=== PATIENT | male | born 1935 | race Caucasian/White ===

== ENCOUNTER 2019-04-23 13:13 | Emergency (ER) | payer MEDICARE, OTHER ==
[~2019-04-23] VITALS: Ht 175.3 cm; Wt 79.5 kg
[~2019-04-23 13:13] MED LIST: ARICEPT10 MG PO; ASPI325T6 PO; CALCIUM CITRAT200 MG PO; CEPHALEXIN500 M1 PO; DIOVAN HCT 25 M1 TA1 PO; FISH OIL1000 MG PO; FLONASE0.05 MG/AC NS; GABAPENTIN100 MG PO; LEVOTHYROXIN0.088 MG PO; LEVOXYL0.088 MG PO; LOPRESSOR 225 MG/TAB PO; NAMENDA XR 28MG PO; NEURONTIN100 MG/CAP PO; OCUVITE1 TA1 PO; OCUVITE1 TA2 PO; PREDFORTE5ML OP; PRILOSEC 20MG20 MG PO; ZOLOFT 50MG50 MG PO
[2019-04-23 13:16] VITALS: TEMP 98.2
[2019-04-23 13:54] LABS: ALANINE AMINOTRANSFERASE < 6 U/L (21-72); ALBUMIN 4.2 gm/dL (3.5-5.0); ALKALINE PHOSPHATASE 116 U/L (50-136); ANION GAP 11 mmol/L (7-16); AST,SGOT 25 U/L (15-37); BILIRUBIN,TOTAL 1.3 mg/dL (0.0-1.0); BLOOD UREA NITROGEN 20 mg/dL (9-20); C-REACTIVE PROTEIN 2.2 mg/dL (0.0-0.9); CALCIUM 9.6 mg/dL (8.4-10.2); CARBON DIOXIDE 25 mmol/L (22-30); CHLORIDE 106 mmol/L (98-107); CREATININE, serum 0.92 (0.66-1.25); GLUCOSE 119 mg/dL (74-106); POTASSIUM 4.1 mmol/L (3.4-5.0); SODIUM 141 mmol/L (137-145); TOTAL PROTEIN 7.5 gm/dL (6.4-8.2)
[2019-04-23 14:03] LABS: BASO % 0.4 % (0.0-2.0); EOS # 0.2 (0.0-0.7); EOS % 2.1 % (0-4.0); GRAN # 5.3 (1.4-6.5); GRAN % 65.5 % (42.2-75.2); HEMATOCRIT 42.1 % (42.0-52.0); HEMOGLOBIN 14.2 g/dl (13.5-18.0); LYMPH # 1.9 (1.2-3.4); LYMPH % 23.2 % (20.0-51.0); MEAN CELL VOLUME 96 fl (80.0-100.0); MEAN CORPUSCULAR HEMOGLOBIN 32 pg (27.0-31.0); MEAN CORPUSCULAR HGB CONC 34 g/dl (33.0-37.0); MEAN PLATELET VOLUME 10.3 fl (7.4-10.4); MONO # 0.7 (0.1-0.6); MONO % 8.3 % (1.7-9.3); PLATELET COUNT 201 K/mm3 (130-400); RED BLOOD COUNT 4.39 M/mm3 (4.20-5.60); REDCELL DISTRIBUTION WIDTH-CV 12.7 % (11.5-14.5)
[2019-04-23 14:04] LABS: PROTHROMBIN TIME 11.9 SECONDS (9.7-12.8)
[2019-04-23 14:06] LABS: PARTIAL THROMBOPLASTIN TIME 29.1 SECONDS (26.0-37.0)
[2019-04-23 14:07] LABS: TROPONIN-I < 0.012 ng/mL (0.000-0.035)
[2019-04-23] MEDS ORDERED: ZIAC 10/6.25M1 UDTAB PO (14:24)
[2019-04-23] MEDS ORDERED: CALCIUM CARBON650 M2 (14:25)
[2019-04-23 17:37] VITALS: BP 118/91; PULSE 61
== END 2019-04-23 17:37 | disposition home or self-care (01) ==
LOC: COL.ER 13:13
PROVIDERS: Family Medicine
DX: R07.89 Other chest pain (principal); I10 Essential (primary) hypertension; K21.9 Gastro-esophageal reflux disease without esophagitis; Z95.0 Presence of cardiac pacemaker; Z79.82 Long term (current) use of aspirin

== ENCOUNTER 2020-02-02 07:45 | Inpatient (IN) | payer MEDICARE, OTHER ==
[~2020-02-02] VITALS: Ht 22.9 cm; Wt 80.9 kg
[~2020-02-02 07:45] MED LIST changes: +CALCIUM CARBON650 M2 PO; +ZIAC 10/6.25M1 UDTAB PO
[2020-02-02 08:36] LABS: BASO % 0.1 % (0.0-2.0); EOS # 0.1 (0.0-0.7); EOS % 0.4 % (0-4.0); GRAN # 11.9 (1.4-6.5); GRAN % 86.4 % (42.2-75.2); HEMATOCRIT 40.9 % (42.0-52.0); HEMOGLOBIN 13.4 g/dl (13.5-18.0); LYMPH # 1.2 (1.2-3.4); LYMPH % 8.4 % (20.0-51.0); MEAN CELL VOLUME 96 fl (80.0-100.0); MEAN CORPUSCULAR HEMOGLOBIN 31 pg (27.0-31.0); MEAN CORPUSCULAR HGB CONC 33 g/dl (33.0-37.0); MONO # 0.5 (0.1-0.6); MONO % 3.8 % (1.7-9.3); PLATELET COUNT 196 K/mm3 (130-400); RED BLOOD COUNT 4.28 M/mm3 (4.20-5.60)
[2020-02-02 08:38] LABS: INR 1.1 (0.8-3.0); PROTHROMBIN TIME 11.9 SECONDS (9.7-12.8)
[2020-02-02 08:43] LABS: ALANINE AMINOTRANSFERASE 17 U/L (4-49); ALBUMIN 4.2 gm/dL (3.5-5.0); ALKALINE PHOSPHATASE 137 U/L (50-136); ANION GAP 8 mmol/L (7-16); AST,SGOT 29 U/L (15-37); BILIRUBIN,TOTAL 1.1 mg/dL (0.0-1.0); BLOOD UREA NITROGEN 22 mg/dL (9-20); CALCIUM 9.6 mg/dL (8.4-10.2); CARBON DIOXIDE 24 mmol/L (22-30); CHLORIDE 104 mmol/L (98-107); CREATININE, serum 0.93 (0.66-1.25); GLUCOSE 116 mg/dL (74-106); SODIUM 136 mmol/L (137-145); TOTAL PROTEIN 7.4 gm/dL (6.4-8.2)
[2020-02-02 08:55] LABS: TROPONIN-I < 0.012 ng/mL (0.000-0.035)
--- NOTE | 2020-02-02 12:38 | NUR ---
Patient arrived to floor from ED via bed. Patient was transferred to room bed via slide board with x3 assist. Patient is alert, appears to be confused/does not comprehend when questions are asked to him. Patient also appears to be comfortable, in no obvious pain or distress. IVF initiated per order, EVIE hose applied to uninjured leg, and bird catheter inserted per order via sterile technique. Patient tolerated procedure well. Fall signage placed, bed alarm on. Admission B completed while on the phone with patient's , who is his DPOA.
[2020-02-02 12:51] VITALS: BP 158/76; PULSE 69; TEMP 99.9
[2020-02-02 13:11] LABS: COLLECTION METHOD CLEAN CATCH
[2020-02-02 13:41] LABS: MUCOUS Present /lpf; PH 5 (5-8); SQUAMOUS EPITHELIAL 0-2 /hpf; URINE APPEARANCE Clear; URINE BACTERIA None Seen /hpf; URINE BILIRUBIN Negative (NEGATIVE); URINE BLOOD Negative (NEGATIVE); URINE COLOR Yellow; URINE GLUCOSE Negative (NEGATIVE); URINE KETONE Negative (NEGATIVE); URINE LEUKOCYTE ESTERASE Negative (NEGATIVE); URINE NITRATE Negative (NEGATIVE); URINE PROTEIN(semi-quant) Negative (NEGATIVE); URINE RBC 0-2 /hpf; URINE UROBILINOGEN Negative (NEGATIVE)
--- NOTE | 2020-02-02 15:16 | NUR ---
Due to the patient's history of dementia, SW contacted the patient's , Maria Luz to complete initial intake. The patient lives in [place] with Maria Luz. The patient does not use a cane or walker but they do have those available in the home. The patient's PCP is Dr. Hirsch and patient receives medications via mail, delivery or order picker/assembler from [facility]. The patient does not have advanced directives in the EMR. Maria Luz states they are completed and designate herself and their daughter Renetta. Renetta lives in [place] and will be visiting beginning 02/02 to support the family. They have another daughter named Rosi Lyle who lives close by. Due to the patient's fracture he will likely need placment. TELMA discussed Medicare.gov's list of post acute rehab facilities in the [place] area. The first choice is [facility]. Maria Luz was hesistant to give a second choice because she want to patient to be closer to home. However, she did end up choosing [facility] in [place] as second choice. TELMA faxed referrals. Will continue to monitor.
--- NOTE | 2020-02-02 15:39 | NUR ---
Patient has become persistently confused over the last hour. Patient has tried to get out of bed unassisted several times, continues to deny needs, PRN pain medication administered per order. Staff member at bedside currently, patient does not respond to re-orientation. Bed alarm on.
[2020-02-02 16:00] VITALS: BP 131/66; PULSE 73; TEMP 99.8
[2020-02-02 20:10] VITALS: BP 145/87; PULSE 86; TEMP 97.9
--- NOTE | 2020-02-02 21:00 | NUR ---
Received report from MADI Turner. Pt is currently lying in bed looking out of his window. Pt bed is in lowest position and call light is on
--- NOTE | 2020-02-02 21:08 | NUR ---
Pt is unable to take direction to perform I.S.
--- NOTE | 2020-02-02 21:10 | NUR ---
Spoke with VELMA Trinidad she informed me that Dr. Chilel would see pt in the am before surgery. She stated that surgery time would be pushed back to 0900. She stated she also spoke to pt and explain the surgery to her. She stated pt will go forward with surgery once he is cleared. Pt is also NPO after midnight. Pt is currently lying in bed awake. Pt has his call light within reach and his bed is in lowest position. His sam hose is on the unaffected leg, he has been refusing the SCD pumps on his legs. Pt currently has fluids running at this time.Pt lungs sounds were clear and heart sounds were normal S1 and S2 sounds pt bowel sounds were hypoactive in all quads. Pt has been very quite just looking around and lying in bed. His bed alarm is also on at this time.
[2020-02-03] VITALS (375 sets, daily range): BP systolic 89–125; BP diastolic 58–84; PULSE 65–82; TEMP 98.1–99.2; O2SAT 70–100
--- NOTE | 2020-02-03 01:36 | NUR ---
Pt has not slept during the night. He is lying in bed very quite just looking around. Pt was given a warm blanket and pt just smiled. He has not been seeking to get out of bed. Pt has his call light within reach and his bed is in lowest position and alarm is on at this time.
--- NOTE | 2020-02-03 07:27 | NUR ---
Reported off to MADI Urias. Pt is currently lying in bed. Pt did not sleep well during the night. He was very quite lying in bed but did not sleep. Pt did pull at his bird quite a bit. Pt stat lock for his bird was replace a couple of time. Pt IV was stablized by wraping it. Pt has his call light within reach. He also takes his oxygen off. Bed is in lowest positon and call light is within reach.
--- NOTE | 2020-02-03 07:34 | NUR ---
Lying in bed with eyes open. Patient is alert but is confused. Denies pain at this time. Conley to dependent drainage draining clear yellow urine.
--- NOTE | 2020-02-03 07:41 | NUR ---
Dr. Chilel calls and explains she will be in to see the patient around 0840 for cardiology clearance.
--- NOTE | 2020-02-03 08:41 | NUR ---
Spoke with the patient's , Maria Luz Guevara, and received consent for patient to have right hip hemiarthroplasty. MADI Santiago, speaks with Maria Luz and also obtains consent. Consent completed and placed on chart.
[2020-02-03 09:11] LABS: HEMOGLOBIN 12.5 g/dl (13.5-18.0); MEAN CELL VOLUME 94 fl (80.0-100.0); MEAN CORPUSCULAR HEMOGLOBIN 32 pg (27.0-31.0); MEAN CORPUSCULAR HGB CONC 34 g/dl (33.0-37.0); MEAN PLATELET VOLUME 10.5 fl (7.4-10.4); PLATELET COUNT 171 K/mm3 (130-400); RED BLOOD COUNT 3.91 M/mm3 (4.20-5.60); REDCELL DISTRIBUTION WIDTH-CV 13.2 % (11.5-14.5)
[2020-02-03 09:16] LABS: CALCIUM 9.4 mg/dL (8.4-10.2); CREATININE, serum 0.96 (0.66-1.25); POTASSIUM 4.2 mmol/L (3.4-5.0)
--- NOTE | 2020-02-03 09:18 | NUR ---
Patient to surgery via bed with surgery staff.
[2020-02-03 09:22] LABS: HEMATOCRIT 36.9 % (42.0-52.0)
[2020-02-03 11:04] LABS: BAND 13 % (0-10); LYMPHOCYTE 8 % (20.0-51.0); NEUTROPHILS 75 % (42.0-75.2); PLATELET ESTIMATE NORMAL (NORMAL)
[2020-02-03 14:36] LABS: ARTERIAL BLD GAS TCO2 CT 18.4; ARTERIAL BLOOD GAS BASE EXCESS -6.2 (-2-2); ARTERIAL BLOOD GAS HCO3 17.5 meq/L (22-26); ARTERIAL BLOOD GAS PCO2 29.1 mmHg (35-45); ARTERIAL BLOOD GAS PO2 66.8 mmHg (80-100)
--- NOTE | 2020-02-03 16:00 | NUR ---
Phone report received from Laurel BEAD INSPECTOR. Pt arrived to ICU bed 5 via bed. Pt alert, no verbal response to questions. Does not follow simple commands. Pt only smiles in response to questions. Right hip dressing c/d/i. right leg elevated on pillow. thigh high sam hose and SCDS on BLE. Pt connected to CRM. HR SR 60s. SBP 80-90s. Conley to DD with clear, dk yellow output. Bed exit alarm on. Call light in reach. Will monitor.
--- NOTE | 2020-02-03 17:22 | NUR ---
Called Pt's , Maria Luz and updated on pt status. Pt's VSS. Pt resting in bed. Opens eyes to name and smiles in response to questions. Pt appears comfortable. Pt's states he has hearing aids but battery probably . Right hip dressing c/d/i. right leg elevated onpillow. Ice pack placed on right hip.
--- NOTE | 2020-02-03 18:19 | NUR ---
Pt more alert. Pt [place], hard to follow commands. VELÁSQUEZ. right leg elevated on pillow. Right hip dressing c/d/i. ice pack off right hip. Pt remains on 4L/oxymask. Conley to DD with clear, dk yellow urine. VSS. Call light in reach.
--- NOTE | 2020-02-03 19:25 | NUR ---
Report given to MADI Parsons.
--- NOTE | 2020-02-03 22:45 | NUR ---
PT is resting in bed, picks at SpO2 monitor on finger. SpO2 monitor moved to ear to keep out of patient sight to reduce agitation. PT not responding to questions, smiles whenever staff speaks to him. Bed alarms are on, call light within reach, water offered and accepted. Will continue to monitor for safety and signs of discomfort.
[2020-02-04] VITALS (470 sets, daily range): BP systolic 94–163; BP diastolic 64–92; PULSE 71–90; TEMP 97.4–100; O2SAT 27–100
--- NOTE | 2020-02-04 03:51 | NUR ---
Pt's oxygen needs decreased last night post anesthesia with improved alertness and on RA rapidly after in ICU; CPAP support and SVNs not needed.
[2020-02-04 07:17] LABS: BASO % 0.1 % (0.0-2.0); GRAN # 10.9 (1.4-6.5); GRAN % 86.5 % (42.2-75.2); LYMPH # 0.9 (1.2-3.4); LYMPH % 7.1 % (20.0-51.0); MEAN CELL VOLUME 96 fl (80.0-100.0); MEAN CORPUSCULAR HGB CONC 33 g/dl (33.0-37.0); MEAN PLATELET VOLUME 10.6 fl (7.4-10.4); MONO # 0.7 (0.1-0.6); MONO % 5.5 % (1.7-9.3); PLATELET COUNT 119 K/mm3 (130-400); RED BLOOD COUNT 3.07 M/mm3 (4.20-5.60); REDCELL DISTRIBUTION WIDTH-CV 13.6 % (11.5-14.5)
[2020-02-04 07:23] LABS: HEMATOCRIT 29.6 % (42.0-52.0); MEAN CORPUSCULAR HEMOGLOBIN 32 pg (27.0-31.0)
[2020-02-04 07:24] LABS: HEMOGLOBIN 9.9 g/dl (13.5-18.0)
[2020-02-04 07:32] LABS: CALCIUM 8.7 mg/dL (8.4-10.2); CREATININE, serum 0.94 (0.66-1.25); INR 1.2 (0.8-3.0); POTASSIUM 4.3 mmol/L (3.4-5.0); PROTHROMBIN TIME 13.6 SECONDS (9.7-12.8)
--- NOTE | 2020-02-04 15:27 | NUR ---
This nurse and MADI Soliz was cleaning the patient up and getting him ready when he started experiencing tachypnea and obvious shortness of breath. Patient was sitting up on side of bed but was unable to hold himself up d/t his labored breathing. Patience, COMMANDING OFF[employer], called and breathing treatment started. SPO2 94% on 5 liters O2. Patient positioned supine in bed with 30 degree HOB angle. This nurse called Dr. Sampson and asked about a possible CT d/t his sudden symptoms. Orders for Bipap received. Dr. Sampson states he will come and see patient.
[2020-02-04 15:45] LABS: ARTERIAL BLD GAS O2 SATURATION 98.7 % (92-100); ARTERIAL BLD GAS TCO2 CT 12.7; ARTERIAL BLOOD GAS HCO3 12.1 meq/L (22-26); ARTERIAL BLOOD GAS pH 7.43 (7.35-7.45)
[2020-02-04 15:46] LABS: ARTERIAL BLOOD GAS PCO2 18.7 mmHg (35-45); ARTERIAL BLOOD GAS PO2 145.7 mmHg (80-100)
--- NOTE | 2020-02-04 19:00 | NUR ---
Bedside report received from Sabra. Providers at bedside during time. Pt in bed with eyes open intermittently. Would not speak to this nurse although was noted to be looking at the staff members in the room. Pt followed commands when it came to squeezing this nurse hands and slightly waved at offgoing nurse.
--- NOTE | 2020-02-04 19:18 | NUR ---
Bedside report given to MADI Sofia. Patient is resting in bed. Call light and bedside table are within reach.
[2020-02-05 02:09] VITALS: O2SAT 96
[2020-02-05 04:00] VITALS: BP 110/68; PULSE 60; TEMP 98.5
[2020-02-05 06:21] LABS: INR 1.2 (0.8-3.0); PROTHROMBIN TIME 13.5 SECONDS (9.7-12.8)
[2020-02-05 06:30] LABS: HEMATOCRIT 29.1 % (42.0-52.0); HEMOGLOBIN 9.5 g/dl (13.5-18.0)
--- NOTE | 2020-02-05 07:10 | NUR ---
Pt report provided to Bijal BARRAZA. Pt resting in bed. Was aroused for morning medication administration.
--- NOTE | 2020-02-05 07:31 | NUR ---
Report received from Kimberlyn BARRAZA and care resumed.
[2020-02-05 08:00] VITALS: BP 125/78; PULSE 63; TEMP 98.8
--- NOTE | 2020-02-05 09:06 | NUR ---
Ortho in to see pt at this time. Will continue to follow.
--- NOTE | 2020-02-05 11:30 | NUR ---
Patient to room 326 by bed from ICU. Report from MADI Appiah. Patient resting in bed, does arouse when spoken to, do have to talk louder. PT had concerns over patients mentation. Cochlear implant to right side. Patient does open eyes, but is not tracking, then closes eyes. Nurse will continue to monitor patients mentation. Call light within reach. Bed alarm on
--- NOTE | 2020-02-05 11:50 | NUR ---
Report called to Brionna BARRAZA on surgical floor. Pt taken by bed to room 326.
[2020-02-05 12:23] VITALS: BP 126/67; PULSE 63; TEMP 98.3
[2020-02-05 15:25] VITALS: BP 111/65; PULSE 63; TEMP 98.2
--- NOTE | 2020-02-05 18:27 | NUR ---
Since being admitted to the floor patient has been resting. Has been arousable to name, but falls back to sleep. Patient is confused and nursing staff unsure if cochlear implant is working. VSS. 2L NC O2. No reported SOB. IV CDI. Abbductor wedge in place and pillow under right leg. No further needs expressed from patient. Call light within reach. Bed alarm on. Fall precautions in place
[2020-02-05 20:46] VITALS: BP 115/63; PULSE 94; TEMP 99.2
[2020-02-06 01:20] VITALS: BP 132/61; PULSE 81; TEMP 100.7
[2020-02-06 04:25] VITALS: BP 98/53; PULSE 75; TEMP 98.1
--- NOTE | 2020-02-06 05:59 | NUR ---
Patient resting in bed at this time. Patient remains alert but confused while awake and continues to be largely unable to communicate. Patient has given no indication of pain, abductor pillow in place, assisted to reposition frequently. Conley remains in place per order. Bed alarm on, call light within reach.
--- NOTE | 2020-02-06 07:08 | NUR ---
REPORT FROM FLASH BARRAZA.
[2020-02-06 07:09] LABS: MEAN CELL VOLUME 96 fl (80.0-100.0); MEAN CORPUSCULAR HGB CONC 33 g/dl (33.0-37.0); MEAN PLATELET VOLUME 11.9 fl (7.4-10.4); PLATELET COUNT 108 K/mm3 (130-400); RED BLOOD COUNT 2.97 M/mm3 (4.20-5.60); REDCELL DISTRIBUTION WIDTH-CV 13.9 % (11.5-14.5)
[2020-02-06 07:13] LABS: CALCIUM 8.6 mg/dL (8.4-10.2); CREATININE, serum 0.95 (0.66-1.25); INR 1.2 (0.8-3.0); MAGNESIUM 2.4 mg/dL (1.6-2.3); PROTHROMBIN TIME 13.7 SECONDS (9.7-12.8)
[2020-02-06 07:23] LABS: HEMATOCRIT 28.6 % (42.0-52.0); HEMOGLOBIN 9.3 g/dl (13.5-18.0); MEAN CORPUSCULAR HEMOGLOBIN 31 pg (27.0-31.0)
[2020-02-06 07:58] LABS: BAND 14 % (0-10); LYMPHOCYTE 8 % (20.0-51.0); NEUTROPHILS 74 % (42.0-75.2); PLATELET ESTIMATE DECREASED (NORMAL)
[2020-02-06 08:04] VITALS: BP 126/64; PULSE 82; TEMP 97.8
--- NOTE | 2020-02-06 08:45 | NUR ---
PT RESTING IN BED STAFF ASSISTING PT TO EAT BREAKFAST. PT CONTINUES TO BE CALM AT THIS TIME.
--- NOTE | 2020-02-06 10:44 | NUR ---
I tried to talk with Kirk earlier today but had minimal response from him and he then nodded off to sleep. I was able to give him a drink of water through a straw and when I asked him how he was doing he gave me a thumbs down hand gesture. I also called and spoke with his Maria Luz who was able to tell me how to replace his battery for his implant which made a huge difference in is ability to interact. I advised him that Maria Luz is missing him and we are working to get him closer to home as soon as we can. He smiled with this. He likes to put puzzles together at home and indicated that he would be willing to do that today if I can find a puzzle for him. feels that this has been a dramatic event for him and at this point would like to focus on rehab. She does not feel he is ready for hospice at this time.
[2020-02-06 11:54] VITALS: BP 115/64; PULSE 66; TEMP 98
[2020-02-06 14:18] LABS: COLLECTION METHOD CLEAN CATCH
[2020-02-06 14:30] LABS: MUCOUS Present /lpf; PH 5 (5-8); SQUAMOUS EPITHELIAL 0-2 /hpf; URINE APPEARANCE Hazy; URINE BACTERIA Rare /hpf; URINE BILIRUBIN Negative (NEGATIVE); URINE BLOOD 2+ (NEGATIVE); URINE COLOR Amber; URINE GLUCOSE Negative (NEGATIVE); URINE KETONE Negative (NEGATIVE); URINE LEUKOCYTE ESTERASE Negative (NEGATIVE); URINE NITRATE Negative (NEGATIVE); URINE PROTEIN(semi-quant) 2+ (NEGATIVE); URINE UROBILINOGEN >=4.0 mg/dL (NEGATIVE)
[2020-02-06 16:11] VITALS: BP 94/48; PULSE 66; TEMP 97.7
--- NOTE | 2020-02-06 16:38 | NUR ---
Oil Change Technician [facility] SW spoke with Marta at [facility] who advised they are likely able to accept. TELMA also spoke with Celine who reports it looks like they will be able to accept as well but are aware they are second preference. SW attempted to call , Maria Luz but line was busy. SW to continue to follow.
--- NOTE | 2020-02-06 20:00 | NUR ---
Pt. sitting up in chair at this time. Pt. is alert and oriented at this time. INT to lt. forearm patent. Dressing to rt. hip CDI. Pt. denies need for pain medication at this time. Pt. denies further needs, call light within reach.
[2020-02-06 20:14] VITALS: BP 107/53; PULSE 74; TEMP 98.5
[2020-02-07 00:43] VITALS: BP 112/59; PULSE 67; TEMP 97.9
--- NOTE | 2020-02-07 02:53 | NUR ---
TREATMENT NOT GIVEN-PATIENT SLEEPING
[2020-02-07 03:53] VITALS: BP 119/58; PULSE 68; TEMP 97.4
--- NOTE | 2020-02-07 05:53 | NUR ---
Pt. given am meds. Pt. began choking on water. Coughed up a large amount of watery phlegm. Lungs sound more corse after episode. Pt. nodes head when asked if he feels like it all came up.
[2020-02-07 07:01] LABS: INR 1.3 (0.8-3.0); PROTHROMBIN TIME 14.3 SECONDS (9.7-12.8)
[2020-02-07 07:05] LABS: BASO % 0.2 % (0.0-2.0); EOS % 0.1 % (0-4.0); GRAN # 11.2 (1.4-6.5); GRAN % 84.7 % (42.2-75.2); LYMPH % 7.3 % (20.0-51.0); MEAN CELL VOLUME 95 fl (80.0-100.0); MEAN CORPUSCULAR HGB CONC 34 g/dl (33.0-37.0); MEAN PLATELET VOLUME 11.9 fl (7.4-10.4); MONO # 0.8 (0.1-0.6); MONO % 6.3 % (1.7-9.3); PLATELET COUNT 125 K/mm3 (130-400); RED BLOOD COUNT 2.97 M/mm3 (4.20-5.60); REDCELL DISTRIBUTION WIDTH-CV 14.1 % (11.5-14.5)
[2020-02-07 07:12] LABS: HEMATOCRIT 28.2 % (42.0-52.0); HEMOGLOBIN 9.5 g/dl (13.5-18.0); MEAN CORPUSCULAR HEMOGLOBIN 32 pg (27.0-31.0)
[2020-02-07 07:13] LABS: CALCIUM 8.7 mg/dL (8.4-10.2); CHOLESTEROL RISK RATIO 9.2; CREATININE, serum 0.98 (0.66-1.25); POTASSIUM 3.5 mmol/L (3.4-5.0)
[2020-02-07 07:47] VITALS: BP 121/59; PULSE 65; TEMP 98.7
[2020-02-07] MEDS ORDERED: ASPI325T6 PO (08:52)
[2020-02-07] MEDS ORDERED: TYLENOL 325MG325 MG PO (08:54)
[2020-02-07] MEDS ORDERED: GOOD NEIGH1200 MG/15 PO (08:55)
[2020-02-07] MEDS ORDERED: VITAMIN C500 MG PO (08:55)
[2020-02-07] MEDS ORDERED: SENEXON-S 50-81 EACH PO (08:55)
[2020-02-07] MEDS ORDERED: MULTI VITAMINS1 TAB PO (08:55)
[2020-02-07] MEDS ORDERED: DULCOLAX S10 MG/SUPP RC (08:55)
[2020-02-07 11:42] VITALS: BP 119/59; PULSE 78; TEMP 98.6
--- NOTE | 2020-02-07 11:58 | NUR ---
First visit from the french weaver. No needs right now.
--- NOTE | 2020-02-07 14:12 | NUR ---
Fountain Pen Turner attended clinical rounds with the team and patient will likely discharge tomorrow. TELMA contacted Darlin DONATO at [facility] and faxed updates. Darlin requested a morning discharge. TELMA contacted ARMANDO Whiting who advised they could see patient early tomorrow. TELMA contacted patient's , Maria Luz to provide update. SW to continue to follow.
[2020-02-07 17:18] VITALS: BP 107/52; PULSE 66; TEMP 97.9
--- NOTE | 2020-02-07 20:05 | NUR ---
Report received. Assumed care for night monitor. Assessment complete. A&O-confused. Sitting up in bed watching TV. Denies pain/nausea/shortness of breath. Aquacell to right hip-dressing CDI. Abductor pillow on. Fresh ice pack applied to hip. TEDs bilat. Denies needs. Call light in reach/alarm on. Will monitor.
[2020-02-07 20:16] VITALS: BP 118/60; PULSE 66; TEMP 99.2
--- NOTE | 2020-02-07 23:45 | NUR ---
Repositioned in bed with abductor pillow in place. Denies pain. Incontinent of urine-perj care provided/barrier cream applied due to redness to scrotum. Fresh ice pack applied to right hip. Did take medications with applesauce without difficulty. Call light in reach/bed alarm on. Will monitor.
[2020-02-08 00:09] VITALS: BP 121/59; PULSE 70; TEMP 99
[2020-02-08 04:00] VITALS: BP 116/64; PULSE 74; TEMP 98.7
[2020-02-08 07:02] LABS: MEAN CELL VOLUME 94 fl (80.0-100.0); MEAN CORPUSCULAR HEMOGLOBIN 31 pg (27.0-31.0); MEAN CORPUSCULAR HGB CONC 33 g/dl (33.0-37.0); MEAN PLATELET VOLUME 11.4 fl (7.4-10.4); PLATELET COUNT 146 K/mm3 (130-400); REDCELL DISTRIBUTION WIDTH-CV 13.9 % (11.5-14.5)
[2020-02-08 07:03] LABS: HEMATOCRIT 30.1 % (42.0-52.0)
[2020-02-08 07:13] LABS: CALCIUM 8.7 mg/dL (8.4-10.2); CREATININE, serum 0.93 (0.66-1.25); POTASSIUM 3.3 mmol/L (3.4-5.0)
[2020-02-08 07:16] LABS: INR 1.4 (0.8-3.0); PROTHROMBIN TIME 15.2 SECONDS (9.7-12.8)
[2020-02-08 07:27] LABS: BAND 12 % (0-10); LYMPHOCYTE 8 % (20.0-51.0); NEUTROPHILS 79 % (42.0-75.2); OVALOCYTES 1+; PLATELET ESTIMATE NORMAL (NORMAL)
[2020-02-08 07:34] VITALS: BP 125/64; PULSE 74; TEMP 98.7
--- NOTE | 2020-02-08 08:00 | NUR ---
Patient in bed resting. Aquacel to right hip is CDI. Abductor pillow in place. Leonard hose to BLE. Denies pain at this time. Eccymosis noted to right hip. Denies further needs at this time.
[2020-02-08] MEDS ORDERED: ZESTRIL 10MG10 MG PO (08:30)
[2020-02-08] MEDS ORDERED: ZEBETA 5MG5 MG PO (08:30)
[2020-02-08] MEDS ORDERED: LASIX 20MG TABL20 MG PO (08:32)
[2020-02-08] MEDS ORDERED: K-TAB10 PO (08:33)
--- NOTE | 2020-02-08 09:00 | NUR ---
Patient spouse at bedside. No needs at this time.
[2020-02-08] MEDS ORDERED: OMNICEF 300MG300 MG PO (09:28)
--- NOTE | 2020-02-08 09:46 | NUR ---
Jig Box Operator attended clinical rounds with the team. Patient's , Maria Luz at bedside. Patient to discharge to [facility] today. TELMA contacted Nivia at and set transport time for 1100. SW provided transport time to patient, patient's Maria Luz, and RN Sade. SW read IM form aloud to patient and patient's who verbalized understanding and provided verbal consent as signature. TELMA placed form in chart and provided copy to patient. SW faxed discharge orders and COVID assessment to . TELMA also faxed copy of operative notes per Nivia's request. TELMA then contacted Sharan at [facility] to update on patient's discharge. No additional needs at this time.
--- NOTE | 2020-02-08 10:32 | NUR ---
Palliative care nurse also attended rounds and talked with after this. She is very pleased that he will be able to go to [facility] this morning.
[2020-02-08 10:45] VITALS: BP 125/64; PULSE 74; TEMP 98.7
--- NOTE | 2020-02-08 11:50 | NUR ---
Patient incontinent of bowel and urine. Pericare provided. Assisted patient to dress. INT to right hand discontinued, catheter tip intact. No further needs at this time. Patient out by wheelchair with surgical staff. Report called to cordell.
== END 2020-02-08 11:50 | DRG 469 ==
LOC: COL.ER 07:45 → SURG 09:20 → ICU 02-03 15:45 → SURG 02-05 13:04
PROVIDERS: Emergency Medicine; Internal Medicine; Nurse Practitioner Family; Orthopaedic Surgery; Physician Assistant; Registered Nurse; ADMIT Student in an Organized Health Care Education/Training Program
PROC: 0SRR0J9 Replacement of Right Hip Joint, Femoral Surface with Synthetic Substitute, Cemented, Open Approach (ICD-10-PCS; principal; 2020-02-03 10:00)
DX: S72.001A Fracture of unspecified part of neck of right femur, initial encounter for closed fracture (principal); J95.821 Acute postprocedural respiratory failure; I21.A1 Myocardial infarction type 2; A41.9 Sepsis, unspecified organism; I50.22 Chronic systolic (congestive) heart failure; J98.11 Atelectasis; W01.0XXA Fall on same level from slipping, tripping and stumbling without subsequent striking against object, initial encounter; F03.90 Unspecified dementia, unspecified severity, without behavioral disturbance, psychotic disturbance, mood disturbance, and anxiety; K21.9 Gastro-esophageal reflux disease without esophagitis; F41.9 Anxiety disorder, unspecified; M51.36 Other intervertebral disc degeneration, lumbar region; I49.5 Sick sinus syndrome; E78.5 Hyperlipidemia, unspecified; M43.16 Spondylolisthesis, lumbar region; H90.42 Sensorineural hearing loss, unilateral, left ear, with unrestricted hearing on the contralateral side; R13.10 Dysphagia, unspecified; M48.00 Spinal stenosis, site unspecified; E03.9 Hypothyroidism, unspecified; Z66 Do not resuscitate; Z51.5 Encounter for palliative care; I95.81 Postprocedural hypotension; D64.9 Anemia, unspecified; I27.20 Pulmonary hypertension, unspecified; Z90.79 Acquired absence of other genital organ(s); Y92.009 Unspecified place in unspecified non-institutional (private) residence as the place of occurrence of the external cause; Z95.0 Presence of cardiac pacemaker; Z95.2 Presence of prosthetic heart valve; Z85.46 Personal history of malignant neoplasm of prostate
CPT/HCPCS: 99223-AI; 99232-AI; 99233-AI; 99239; A9284; C1713; C1776; J0171; J0690; J0696; J2250; J2270; J2370; J2704; J3010; J7030; P9047